=== PATIENT | female | born 1970 | race Caucasian/White ===

== ENCOUNTER → 2016-03-26 | Outpatient (CLI) | payer MEDICAID | END | disposition home or self-care (01) | LOC: LABMAIN 08:33 | PROVIDERS: ATTEND Obstetrics & Gynecology | DX: N91.2 Amenorrhea, unspecified (principal); E03.9 Hypothyroidism, unspecified | CPT/HCPCS: 36415; 82670; 83001; 84439; 84443 ==

== ENCOUNTER → 2016-04-26 | Outpatient (CLI) | payer MEDICAID ==
--- NOTE | 2016-04-27 10:47 | MM ---
Reason for exam: screening (asymptomatic). Last mammogram was performed 4 years and 8 months ago. History: Saline implants in both breasts, 2005. Took hormonal contraceptives for 5 years beginning at age 20. Physical Findings: A clinical breast exam by your physician is recommended on an annual basis and results should be correlated with mammographic findings. MG 3D Screen Mammo Imp/Cad Bilateral CC, MLO, and ID view(s) were taken. Prior study comparison: August 24, 2011, CAD bilateral diagnostic mammogram. There are scattered fibroglandular densities. Finding: There are typically benign calcifications in the 9 o'clock lower quadrant of the left breast, 3cm from the nipple. New finding since August 24, 2011. ASSESSMENT: Incomplete: need additional imaging evaluation, BI-RAD 0 RECOMMENDATION: Special view mammogram of the left breast. [facility] will attempt to contact patient to return for supplemental views.
== END | disposition home or self-care (01) ==
LOC: RADMAMWWP 07:07
PROVIDERS: ATTEND Obstetrics & Gynecology
DX: Z12.31 Encounter for screening mammogram for malignant neoplasm of breast (principal); R92.8 Other abnormal and inconclusive findings on diagnostic imaging of breast; R92.1 Mammographic calcification found on diagnostic imaging of breast
CPT/HCPCS: 77063; G0202; 76856

== ENCOUNTER → 2016-04-26 | Outpatient (CLI) | payer MEDICAID ==
--- NOTE | 2016-04-26 10:55 | US ---
EXAMINATION TYPE: US transvaginal DATE OF EXAM: 04/26/2016 10:42 AM COMPARISON: Pelvic ultrasound August 24, 2011 CLINICAL HISTORY: D25.9 KNOWN UTERINE LEIOMYOMA. pelvic tenderness and enlarged uterus on dr's exam TECHNIQUE: Transabdominal (TA) per pt preference Date of LMP: had ablation, no cycles EXAM MEASUREMENTS: Uterus: 8.6 x 5.2 x 7.4 cm Endometrial Stripe: unable to visualize, post ablation Right Ovary: 2.4 x 1.5 x 1.4 cm Left Ovary: 2.4 x 2.6 x 1.3 cm TECHNOLOGIST IMPRESSION: 1. Uterus: anterverted, seen with 3 fibroids, largest at posterior uterine fundus measuring 6.1 x 5. 4 x 4.3cm 2. Endometrium: poorly delineated due to prior ablation 3. Right Ovary: wnl 4. Left Ovary: wnl 5. Bilateral Adnexa: wnl 6. Posterior cul-de-sac: no free fluid seen There are well-circumscribed heterogeneous hypoechoic lesions throughout the uterus consistent with k nown fibroids. Largest measures 6.1 cm on long axis. At least 3 well-defined fibroids are identified during real-time scanning per technologist including low-lying anterior subserosal 2.7 cm lesion note d on image 24. No free fluid is seen in pelvis. Both ovaries are identified. No suspicious adnexal masses are identified. IMPRESSION: Uterine fibroids redemonstrated, increased in size and number from 2012 ultrasound. Pelvi c MRI can be performed to better evaluate and characterize if desired.
== END ==
LOC: RADUSWWP 10:17
PROVIDERS: ATTEND Obstetrics & Gynecology
DX: D25.9 Leiomyoma of uterus, unspecified (principal)
CPT/HCPCS: 76856

== ENCOUNTER → 2016-04-29 | Outpatient (CLI) | payer MEDICAID ==
--- NOTE | 2016-04-29 10:24 | MM ---
Reason for exam: additional evaluation requested from abnormal screening. Last mammogram was performed less than 1 month ago. History: Saline implants in both breasts, 2005. Took hormonal contraceptives for 7 years beginning at age 20. Physical Findings: Nurse did not find any significant physical abnormalities on exam. MG Work Up Joyce W/Imp W/CAD L ML, ML with magnification, and CC with magnification view(s) were taken of the left breast. Prior study comparison: April 26, 2016, bilateral MG 3d screen mammo imp/cad. August 24, 2011, CAD bilateral diagnostic mammogram. The breast tissue is heterogeneously dense. This may lower the sensitivity of mammography. Clusters of fine microcalcifications medially and just above the retroareolar plane at 10 o'clock. There may be underlying nodularity for which ultrasound is recommended. These results were verbally communicated with the patient and result sheet given to the patient on 04/29/16. ASSESSMENT: Incomplete: need additional imaging evaluation, BI-RAD 0 RECOMMENDATION: Ultrasound of the left breast. (6-12:00)
--- NOTE | 2016-04-29 10:29 | USB ---
Reason for exam: additional evaluation requested from abnormal screening. History: Saline implants in both breasts, 2004. Took hormonal contraceptives for 7 years beginning at age 20. US Breast Workup Limited LT Left breast ultrasound demonstrates a 8 x 7 x 6mm oval, cystic lesion at 12 o'clock, a 26 x 6 x 14mm cystic cluster at 10-11 o'clock and multiple small cluster at upper/just medial to implant. These results were verbally communicated with the patient and result sheet given to the patient on 04/29/16. ASSESSMENT: Probably benign, BI-RAD 3 RECOMMENDATION: Ultrasound of the left breast in 6 months.
== END | disposition home or self-care (01) ==
LOC: RADMAMWWP 08:15
PROVIDERS: ATTEND Obstetrics & Gynecology
DX: R92.8 Other abnormal and inconclusive findings on diagnostic imaging of breast (principal)
CPT/HCPCS: 76642; G0204

== ENCOUNTER → 2016-11-11 | Outpatient (CLI) | payer MEDICAID ==
--- NOTE | 2016-11-11 10:36 | USB ---
Reason for exam: follow-up at short interval from prior study. History: Saline implants in both breasts, 2005. Took hormonal contraceptives for 7 years beginning at age 20. Physical Findings: Nurse Summary: BB's on palpable (nurse kp). US Breast LT Left breast ultrasound includes all four quadrants, the retroareolar region and axilla. Finding demonstrates a 26 x 4 x 12mm cystic cluster at 10 o'clock versus 2.7 x 0.6 x 1.4cm previously. Findings likely relate to fibrocystic change. No solid or cystic lesion seen at the other palpable sites. These results were verbally communicated with the patient and result sheet given to the patient on 11/11/16. ASSESSMENT: Benign, BI-RAD 2 RECOMMENDATION: Return to routine screening mammogram schedule for both breasts. Back on schedule for April 2017.
== END | disposition home or self-care (01) ==
LOC: RADUSWWP 08:52
PROVIDERS: ATTEND Obstetrics & Gynecology
DX: R92.8 Other abnormal and inconclusive findings on diagnostic imaging of breast (principal)

== ENCOUNTER → 2017-02-11 | Outpatient (CLI) | payer MEDICAID ==
[2017-02-11 07:44] LABS: Appearance,Urine Clear (Clear); Bilirubin,Urine Negative (Negative); Blood,Urine Trace (Negative); Color,Urine Yellow; Glucose,Urine (UA) Negative (Negative); Hyaline Casts,Urine 1 /lpf (0-2); Ketones,Urine Negative (Negative); Leukocyte Esterase,Urine Negative (Negative); Mucus,Urine Moderate /hpf; Nitrite,Urine Negative (Negative); PH, Urine 5.5 (5.0-8.0); Protein,Urine Trace (Negative); RBC,Urine <1 /hpf (0-5); Squamous Epithelial Cell,Urine 3 /hpf (0-4); Urobilinogen,Urine <2.0 mg/dL (<2.0); WBC,Urine 2 /hpf (0-5)
[2017-02-11 07:54] LABS: Basophils % (A) 0 %; Eosinophils # (A) 0.2 k/uL (0-0.7); Eosinophils % (A) 3 %; HCT 44.9 % (34.0-46.0); HGB 15.2 gm/dL (11.4-16.0); Lymphocytes # (A) 1.4 k/uL (1.0-4.8); Lymphocytes % (A) 23 %; MCHC 33.8 g/dL (31.0-37.0); MCV 85.9 fL (80.0-100.0); Mean Platelet Volume 6.8; Monocytes # (A) 0.3 k/uL (0-1.0); Monocytes % (A) 5 %; Neutrophils # (A) 3.9 k/uL (1.3-7.7); Neutrophils % (A) 67 %; Platelet Count 260 k/uL (150-450); RBC 5.23 m/uL (3.80-5.40); RDW 11.7 % (11.5-15.5); WBC 5.8 k/uL (3.8-10.6)
[2017-02-11 07:57] LABS: ALT 28 U/L (9-52); AST 22 U/L (14-36); Albumin 4.3 g/dL (3.5-5.0); Alkaline Phosphatase 87 U/L (38-126); Anion Gap 8 mmol/L; Blood Urea Nitrogen 15 mg/dL (7-17); Calcium 9.7 mg/dL (8.4-10.2); Carbon Dioxide 25 mmol/L (22-30); Chloride 108 mmol/L (98-107); Cholesterol 168 mg/dL (<200); Glucose 96 mg/dL (74-99); HDL Cholesterol 74 mg/dL (40-60); LDL Cholesterol,Calculated 84 mg/dL (0-99); Potassium 4.3 mmol/L (3.5-5.1); Sodium 141 mmol/L (137-145); Total Bilirubin 0.5 mg/dL (0.2-1.3); Total Protein 7.2 g/dL (6.3-8.2); Triglycerides 50 mg/dL (<150)
== END | disposition home or self-care (01) ==
LOC: LABMAIN 07:07
PROVIDERS: ATTEND Family Medicine
DX: Z00.00 Encounter for general adult medical examination without abnormal findings (principal)
CPT/HCPCS: 36415; 80053; 80061; 81001; 82306; 85025; 87086

== ENCOUNTER → 2018-03-20 | Outpatient (CLI) | payer MEDICAID ==
[2018-03-20 10:06] LABS: Appearance,Urine Cloudy (Clear); Bacteria,Urine Many /hpf; Bilirubin,Urine Negative (Negative); Blood,Urine Trace (Negative); Color,Urine Dark Yellow; Glucose,Urine (UA) Negative (Negative); Ketones,Urine Negative (Negative); Leukocyte Esterase,Urine Large (Negative); Mucus,Urine Few /hpf; Nitrite,Urine Positive (Negative); Protein,Urine Trace (Negative); RBC,Urine 8 /hpf (0-5); Squamous Epithelial Cell,Urine 9 /hpf (0-4); WBC,Urine >182 /hpf (0-5)
== END ==
LOC: LABMAIN 09:07
PROVIDERS: ATTEND Physician Assistant Medical
DX: R31.9 Hematuria, unspecified (principal)
CPT/HCPCS: 81001; 87086

== ENCOUNTER → 2018-06-13 | Outpatient (CLI) | payer MEDICAID ==
--- NOTE | 2018-06-13 15:52 | US ---
EXAMINATION TYPE: US pelvic complete DATE OF EXAM: 06/13/2018 COMPARISON: 04/26/2016 CLINICAL HISTORY: Leiomyoma of uterus, unspe D25.9. Ablation 3-4 years ago. Known fibroids TECHNIQUE: Transabdominal (TA) - patient preference Date of LMP: unknown EXAM MEASUREMENTS: Uterus: 11.9 x 7.0 x 9.4 cm Endometrial Stripe: 0.4 cm Right Ovary: 3.8 x 2.2 x 2.2 cm Left Ovary: 2.8 x 1.2 x 1.2 cm 1. Uterus: Anteverted at least 3 fibroids noted with largest at posterior fundus = 7.4 x 7.1 x 9.0 cm 2. Endometrium: poorly visualized 3. Right Ovary: follicles noted 4. Left Ovary: follicles noted 5. Bilateral Adnexa: appears wnl 6. Posterior cul-de-sac: wnl IMPRESSION: 1. Multiple large uterine fibroids. 2. Findings appear similar to prior exam
[2018-06-13 18:33] LABS: HIV 1 AB Non-Reactive (Non-Reactive); HIV AB P24 Non-Reactive (Non-Reactive); HIV P24 AG Non-Reactive (Non-Reactive)
--- NOTE | 2018-06-14 10:50 | MM ---
Reason for exam: screening (asymptomatic). Last mammogram was performed 2 years and 1 month ago. History: Saline implants in both breasts, 2005. Took hormonal contraceptives for 7 years beginning at age 20. Physical Findings: A clinical breast exam by your physician is recommended on an annual basis and results should be correlated with mammographic findings. MG 3D Screen Mammo Imp/Cad Bilateral CC, MLO, and ID view(s) were taken. Prior study comparison: April 29, 2016, left breast MG work up belen w/imp w/CAD L. April 26, 2016, bilateral MG 3d screen mammo imp/cad. The breast tissue is heterogeneously dense. This may lower the sensitivity of mammography. Stable bilateral implants. No significant changes when compared with prior studies. ASSESSMENT: Benign, BI-RAD 2 RECOMMENDATION: Routine screening mammogram of both breasts in 1 year.
== END ==
LOC: RADUSWWP 07:45
PROVIDERS: ATTEND Obstetrics & Gynecology
DX: D25.9 Leiomyoma of uterus, unspecified (principal); Z12.31 Encounter for screening mammogram for malignant neoplasm of breast; Z98.82 Breast implant status; R10.2 Pelvic and perineal pain
CPT/HCPCS: 76856; 77063; 77067; 86780; 87390

== ENCOUNTER → 2018-08-15 | Outpatient (CLI) | payer MEDICAID ==
[2018-08-15 11:29] LABS: Basophils % (A) 1 %; Eosinophils # (A) 0.2 k/uL (0-0.7); Eosinophils % (A) 3 %; HCT 43.6 % (34.0-46.0); HGB 14.8 gm/dL (11.4-16.0); Lymphocytes # (A) 1.3 k/uL (1.0-4.8); Lymphocytes % (A) 22 %; MCH 29.3 pg (25.0-35.0); MCHC 34.1 g/dL (31.0-37.0); MCV 86.1 fL (80.0-100.0); Mean Platelet Volume 7.1; Monocytes # (A) 0.2 k/uL (0-1.0); Monocytes % (A) 4 %; Neutrophils # (A) 3.8 k/uL (1.3-7.7); Neutrophils % (A) 68 %; Platelet Count 253 k/uL (150-450); RBC 5.06 m/uL (3.80-5.40); RDW 13.3 % (11.5-15.5); WBC 5.6 k/uL (3.8-10.6)
[2018-08-15 11:34] LABS: African American GFR (CKD) >90 (>60 ml/min/1.73 sqM); Anion Gap 9 mmol/L; Blood Urea Nitrogen 15 mg/dL (7-17); Calcium 9.6 mg/dL (8.4-10.2); Carbon Dioxide 26 mmol/L (22-30); Chloride 106 mmol/L (98-107); Glucose 70 mg/dL (74-99); Potassium 4.1 mmol/L (3.5-5.1); Sodium 141 mmol/L (137-145)
== END | disposition home or self-care (01) ==
LOC: LABPAT 10:27
PROVIDERS: ATTEND Obstetrics & Gynecology
DX: Z01.812 Encounter for preprocedural laboratory examination (principal)
CPT/HCPCS: 36415; 80048; 85025

== ENCOUNTER 2018-08-24 07:51 | Day surgery (SDC) | payer MEDICAID ==
--- NOTE | 2018-08-23 16:45 | P.HPOB ---
History of Present Illness H&P Date: 08/23/18 Chief Complaint: Fibroid uterus IV is a 47-year-old female with grossly enlarged 12 cm fibroid uterus. On exam it is larger in the posterior area but does have good mobility we'll try a laparoscopic robotic assisted hysterectomy with removal of bilateral fallopian tubes and possible RADHA possible BSO. Risks/benefits/alternatives to this procedure were discussed with the patient in detail prior to proceeding to the operating room and did include but were not limited to bleeding and infection damage to bladder or bowel past surgeries nerve injuries ureteral damage vascular injuries nerve injuries. On physical exam vital signs are stable and afebrile. Heart regular, lungs clear, extremities without pain. Pelvic exam reveals as above. She does have significant amount of pressure and the symptoms have become troublesome and are making difficult for her to function well and that is what we're moving forward with definitive therapy. Past Medical History Past Medical History: GERD/Reflux Additional Past Medical History / Comment(s): CURRENT: FIBROID. GALL STONES. GERED RESOLVED AFTER GB REMOVED. History of Any Multi-Drug Resistant Organisms: None Reported Past Surgical History: Cholecystectomy, Uterine Ablation Additional Past Surgical History / Comment(s): BREAST AUGMENTATION Past Anesthesia/Blood Transfusion Reactions: Postoperative Nausea & Vomiting (PONV) Past Psychological History: Anxiety Smoking Status: Never smoker Past Alcohol Use History: Rare Past Drug Use History: None Reported - Past Family History Father Family Medical History: Cancer Additional Family Medical History / Comment(s): KIDNEY AND BLADDER CANCER- POSSIBLE METS. Medications and Allergies Home Medications Medication Instructions Recorded Confirmed Type Ibuprofen [Motrin Ib] 200 - 400 mg PO Q6H PRN 08/18/18 08/18/18 History Allergies Allergy/AdvReac Type Severity Reaction Status Date / Time cefuroxime axetil Allergy Unknown Rash/Hives Verified 08/18/18 15:27 [From Ceftin] ciprofloxacin [From Cipro] Allergy Unknown Rash/Hives Verified 08/18/18 15:27 ciprofloxacin HCl Allergy Unknown Rash/Hives Verified 08/18/18 15:27 [From Cipro] Exam Osteopathic Statement: *. No significant issues noted on an osteopathic structural exam other than those noted in the History and Physical/Consult. - OBG Physical Exam Breast: both: normal (no masses) Abdomen: bowel sounds normal, no diffuse tenderness, no bruit present, no guarding noted, no hepatomegaly, no splenomegaly, no mass Vulva: both: normal Vagina: normal moisture, no discharge Cervix: no lesion, no discharge Uterus: normal size, normal contour Adnexa: both: normal Anus/Rectum: normal perianal skin, no rectal mass, no hemorrhoids, heme negative
[~2018-08-24 07:51] MED LIST: CLINDAMYCIN 900 MG in DEXTROSE 5% IN WATER 50 ML IVPB ONE; DEXAMETHASONE SOD PHOSPHATE 10 MG/ML 1 ML VIAL IV ONE; GENTAMICIN 260 MG in SODIUM CHLORIDE 0.9% 100 ML IVPB ONE; HYDROmorphone 0.5 MG/0.5 ML SYRINGE IVP PRN; LIDOCAINE 1% 20 ML VIAL (10MG/ML) FOR IV START INTRADERMA PRN; ONDANSETRON 4 MG/2 ML VIAL IVP ONE; SCOPOLAMINE 1.5MG/72HR PATCH TRANSDERM ONE
[2018-08-24] MEDS ORDERED: LACTATED RINGERS 1,000 ML IV ONE ×2 (08:21→11:38)
[2018-08-24] MEDS: LACTATED RINGERS 1,000 ML IV SCH ×2 (08:22→18:29)
[2018-08-24] MEDS ORDERED: MIDAZOLAM (PF) 2 MG/2 ML VIAL IVP ONE (08:27)
[2018-08-24] MEDS ORDERED: KETOROLAC 30 MG/ML 1 ML VIAL ONE (09:08)
[2018-08-24] MEDS ORDERED: LIDOCAINE 1% INJ 10MG/ML (20 ML MDV) ONE (09:08)
[2018-08-24] MEDS ORDERED: NEOSTIGMINE 1 MG/ML 10 ML VIAL ONE (09:08)
[2018-08-24] MEDS ORDERED: HYDROmorphone (PF) 1 MG/ML ONE (09:08)
[2018-08-24] MEDS ORDERED: GLYCOPYRROLATE 0.2 MG/ML 2 ML VIAL ONE (09:08)
[2018-08-24] MEDS ORDERED: ROCURONIUM BROMIDE 10 MG/ML 10 ML VIAL IV ONE (09:08)
[2018-08-24] MEDS ORDERED: PROPOFOL 10 MG/ML 20 ML VIAL IV ONE (09:08)
[2018-08-24] MEDS ORDERED: fentaNYL (PF) 50 MCG/ML 2 ML AMP ONE (09:08)
[2018-08-24] MEDS ORDERED: BUPIVACAINE (PF) 0.25% 30 ML VIAL SQ ONE ×2 (09:50)
[2018-08-24] MEDS ORDERED: SIMETHICONE 80 MG CHEWABLE PO PRN (11:46)
[2018-08-24] MEDS ORDERED: ONDANSETRON 4 MG/2 ML VIAL IVP PRN ×2 (11:46→14:08)
--- NOTE | 2018-08-24 12:03 | P.OP ---
Date of Procedure: 08/24/18 Preoperative Diagnosis: Fibroid uterus Postoperative Diagnosis: Same with bowel adhesions to posterior uterus Procedure(s) Performed: Robotic-assisted laparoscopic hysterectomy with bilateral salpingectomy and diagnostic cystoscopy as well as lysis of adhesions Anesthesia: ANASTACIA Surgeon: Garrison Díaz Bus Escort #1: Reva Salcedo Estimated Blood Loss (ml): 100 IV fluids (ml): 700 Urine output (ml): 150 Pathology: other (Uterus, cervix, fallopian tubes) Condition: stable Disposition: floor Operative Findings: Significant and hard adhesions of the rectum/sigmoid colon to the posterior uterus that were bluntly and sharply lysed free grossly very enlarged uterus with multiple fibroids Description of Procedure: Patient was taken to the operating suite where a general anesthetic was found be adequate. She was prepped and draped in the normal sterile fashion and placed in the dorsal lithotomy position. Initially a speculum was inserted into the vagina and the anterior lip of the cervix was identified and grasped with a single-tooth tenaculum. Cervix was then dilated and sounded to approximately 9 cm. Uterus was noted to be grossly large and that but likely secondary to fibroid. Once sounded and cut measured 3 cm a Alannah manipulator was inserted with sutures placed at 3 and 9 to help and assistance. Other incidents were then removed and were Fischer catheter was placed. Gloves were then changed and attention was turned to abdominal portion procedure where 2 mL of quarter percent Marcaine was injected about 6 cm above the umbilicus due to the enlarged uterus which was measuring on exam today approximately 14 cm. Once this was accomplished a 5 mm port and sleeve were inserted under direct visualization with an optical trocar and sleeve. Once peritoneal placement was assured gas was allowed to fully insufflate the abdomen and patient was then placed in a very steep Trendelenburg position. 2 lateral ports were then placed just above the umbilicus 10 cm laterally. To the umbilicus bilaterally and through these 8 mm skin incisions da Zahida ports and sleeves were inserted. Once this was completed a 1 cm incision was made between the left lateral and the medial port and a 10 mm trocar and sleeve were placed. Camera port was then exchanged for a robotic port and the robot was brought in and docked. Once fully docked a scissor placed in the one arm and a [place] grasper in the 2 arm. At this point I did break scrub and go to the console. Uterus was elevated and anteverted observations the pelvis were noted. Thick scarring of the rectum/s igmoid were noted on the posterior side of the uterus and were bluntly and sharply lysed free. Every effort was made to stay well above the scarring, however the scarring was firmly attached to the uterus likely secondary to endometriosis as I have no other explanation for why the scar tissue would been there. During the process of blunt dissection a small window was created that there was concern over there being a bowel injury, we did call a general surgeon who came and evaluated the area, no bowel or fluid or leaking was noted from the area at all and the decision to continue the case was made as it appeared to be more peritoneal hole than a injury to the bowel. Therefore uterus was elevated and tipped left-hand side the mesosalpinx tissue were then grasped cauterized and cut all the way to the edge of the uterus and the fallopian tube was excised and removed to get it out of the operative field. Once this was completed utero-ovarian tissues were identified cauterized and cut and tissue was cauterized and cut from the mesosalpinx tissues all the way to the round ligament round ligament was then cauterized and cut and then the 2 windows or edges of the broad ligament were skeletonized for better visualization. Uterine vasculature was then cauterized. Next the 0 scope was exchanged for a 30 down scope and the vesicouterine peritoneum was identified and undermined with [place] and this opening was extended across the face the uterus incising the tissues and bluntly dissecting the bladder out of the operative field. Once this was completed the right side of the uterus was developed in a similar fashion. This was a relatively slow and delivery process as her uterus was very large and what we had excellent visibility there was still somewhat limited room to work with as large fibroid uterus that she had. Once this process was completed the bladder was completely dissected out of the operative field the balloon and the Alannah manipulator was expanded and an anterior colpotomy was made. Continue to use a 30 down scope the cup was followed counterclockwise initially to proxy 9:00 and at this point a 0 scope was then brought back in. Due to some restraints on manipulation because the size and weight of the uterus after approximately getting to 8:00 I stopped and reversed to a clockwise motion moving from approximately 2:00 around the cervix there is better mobility doing this and we were able to follow the cervical cup all the way around to 3 and 60. Once this was completed Alannah manipulator was removed and a uterine extraction bag was placed uterus was placed in the uterus uterine extraction bag brought to the vagina and with some manipulation we were able to remove the uterus in total. No bleeding is noted on the pedicles at this juncture. The general surgeon again came into the room and we again identified the area there was no significant concern for bowel injury from his standpoint and using to OB lock suture we simply reapproximated the peritoneal tear. Once this was accomplished using a make suture cut and a cardia grasper the vaginal cuff was closed essentially in 2 layers with old V lock suture due to how thin the anterior layer was with pelvic needed some additional re-imbrication or support to keep from having any potential perforations following the healing process. Once this was completed pelvis was thoroughly irrigated and no bleeding is noted. At this point robot was undocked and removed from the field and ports were removed. 5 deep breaths were provided during this process. Once completed Dr. Salcedo close the incision subcuticularly with 4-0 Vicryl suture. At the same time I did do a cystoscopy and good flow was noted from both ureteral jets. All instruments were then removed. Sponge, lap, needle counts were all correct 2. Patient was then taken to the recovery room in stable and satisfactory condition.
[2018-08-24] MEDS: HEPARIN SODIUM,PORCINE 5,000 UNIT/ML 1 ML VIAL SQ SCH ×2 (14:25→22:48)
[2018-08-24 15:17] VITALS: BMI 3360.1
[2018-08-24] MEDS ORDERED: SODIUM CHLORIDE 0.9% 500 ML 500 ML IV ONE (17:25)
[2018-08-24] MEDS: KETOROLAC 30 MG/ML 1 ML VIAL IVP PRN (17:30)
[2018-08-24 19:20] VITALS: RESP 16
[2018-08-24] MEDS: SENNOSIDES-DOCUSATE SODIUM 1 EACH TAB PO SCH (22:42)
[2018-08-25] MEDS: KETOROLAC 30 MG/ML 1 ML VIAL IVP PRN (03:44)
[2018-08-25] MEDS: HEPARIN SODIUM,PORCINE 5,000 UNIT/ML 1 ML VIAL SQ SCH (06:33)
--- NOTE | 2018-08-25 08:18 | P.DS ---
Providers Expected date of discharge: 08/25/18 Attending physician: Garrison Díaz Primary care physician: [facility] Course: IV is doing very well postop day 1. She is involuting, voiding and she is tolerating her diet. She is also passing flatus and voices no complaints. She is tolerating a regular diet this morning. I'll signs are stable and afebrile. Heart regular, lungs clear, extremities without pain. Abdomen soft incisions are intact and she does have bowel sounds. Assessment postop day 1. Plan discharged home follow up with me in 2 weeks. Prescriptions for [place] and Motrin are provided discharge instructions are thoroughly reviewed. If she has any issues at all she is to notify our office or [facility] emergency room all questions are answered for her at this time as well as for her . She is stable for discharge this time. Patient Condition at Discharge: Good Plan - Discharge Summary Discharge Rx Participant: No New Discharge Prescriptions: New Ibuprofen [Motrin] 600 mg PO Q6HR PRN #30 tab PRN Reason: Pain HYDROcodone/APAP 5-325MG [[place] 5-325] 1 tab PO Q4HR PRN #30 tab PRN Reason: Pain No Action Ibuprofen [Motrin Ib] 200 - 400 mg PO Q6H PRN PRN Reason: Pain Discharge Medication List Ibuprofen [Motrin Ib] 200 - 400 mg PO Q6H PRN 08/18/18 [History] HYDROcodone/APAP 5-325MG [[place] 5-325] 1 tab PO Q4HR PRN #30 tab 08/25/18 [Rx] Ibuprofen [Motrin] 600 mg PO Q6HR PRN #30 tab 08/25/18 [Rx] Follow up Appointment(s)/Referral(s): Garrison Díaz DO [Doctor of Osteopathic Medicine] - 2 Weeks Activity/Diet/Wound Care/Special Instructions: No heavy lifting, stairs and driving, and pelvic rest. If any high temperatures, heavy bleeding, or severe pain call my office
[2018-08-25 09:06] VITALS: BP 117/72; PULSE 71; TEMP 98.9
[2018-08-25] MEDS: SENNOSIDES-DOCUSATE SODIUM 1 EACH TAB PO SCH (09:38)
[2018-08-25 10:34] LABS: Basophils % (A) 0 %; Eosinophils # (A) 0.3 k/uL (0-0.7); Eosinophils % (A) 3 %; HCT 34.4 % (34.0-46.0); Lymphocytes # (A) 0.9 k/uL (1.0-4.8); Lymphocytes % (A) 11 %; MCH 29.4 pg (25.0-35.0); MCHC 34.3 g/dL (31.0-37.0); MCV 85.6 fL (80.0-100.0); Mean Platelet Volume 7.4; Monocytes # (A) 0.4 k/uL (0-1.0); Monocytes % (A) 4 %; Neutrophils # (A) 6.7 k/uL (1.3-7.7); Neutrophils % (A) 81 %; Platelet Count 199 k/uL (150-450); RBC 4.01 m/uL (3.80-5.40); RDW 13.8 % (11.5-15.5); WBC 8.3 k/uL (3.8-10.6)
[2018-08-25 10:42] LABS: HGB 11.8 gm/dL (11.4-16.0)
== END 2018-08-25 10:15 | disposition home or self-care (01) ==
LOC: OR 07:51 → 6PED 12:56 → OR 08-25 10:15
PROVIDERS: ATTEND Obstetrics & Gynecology
DX: D25.9 Leiomyoma of uterus, unspecified (principal); N80.0 Endometriosis of uterus; K66.0 Peritoneal adhesions (postprocedural) (postinfection); K21.9 Gastro-esophageal reflux disease without esophagitis; F41.9 Anxiety disorder, unspecified; Z90.49 Acquired absence of other specified parts of digestive tract; Z80.52 Family history of malignant neoplasm of bladder; Z80.51 Family history of malignant neoplasm of kidney; Z88.1 Allergy status to other antibiotic agents
CPT/HCPCS: 58573; S2900; 81025; 85025; 86850; 86900; 86901; 88307

== ENCOUNTER → 2020-02-18 | Outpatient (CLI) | payer MEDICAID | END | disposition home or self-care (01) | LOC: LABMAIN 12:42 | PROVIDERS: ATTEND Emergency Medicine | DX: Z20.828 Contact with and (suspected) exposure to other viral communicable diseases (principal) | CPT/HCPCS: 36415; 86769 ==

== ENCOUNTER → 2020-08-12 | Outpatient (CLI) | payer MEDICAID ==
--- NOTE | 2020-08-14 11:49 | MM ---
Reason for exam: screening (asymptomatic). Last mammogram was performed 2 years and 2 months ago. History: Saline implants in both breasts, 2005. Took hormonal contraceptives for 7 years beginning at age 20. Physical Findings: A clinical breast exam by your physician is recommended on an annual basis and results should be correlated with mammographic findings. MG 3D Screen Mammo Imp/Cad Bilateral CC, MLO, and ID view(s) were taken. Prior study comparison: June 13, 2018, bilateral MG 3d screen mammo imp/cad. April 29, 2016, left breast MG work up belen w/imp w/CAD L. The breast tissue is heterogeneously dense. This may lower the sensitivity of mammography. Bilateral implants are intact. ASSESSMENT: Benign, BI-RAD 2 RECOMMENDATION: Routine screening mammogram of both breasts in 1 year.
== END | disposition home or self-care (01) ==
LOC: RADMAMWWP 07:40
PROVIDERS: ATTEND Obstetrics & Gynecology
DX: Z12.31 Encounter for screening mammogram for malignant neoplasm of breast (principal)
CPT/HCPCS: 77063; 77067

== ENCOUNTER → 2020-08-12 | Outpatient (CLI) | payer MEDICAID ==
[2020-08-12 12:27] LABS: HGB 14.6 g/dL (12.0-15.0); MCH 29.7 pg (27.0-32.0); MCV 87.4 fL (80.0-97.0); Mean Platelet Volume 9.5 fL (9.5-12.2); Platelet Count 328 X 10*3/uL (140-440); RBC 4.92 X 10*6/uL (4.10-5.20); RDW 11.7 % (11.5-14.5); WBC 5.58 X 10*3/uL (4.50-10.00)
[2020-08-12 13:38] LABS: Chol/HDL Ratio 2.5; LDL Cholesterol,Calculated 94.6 mg/dL (0.0-131.0); VLDL Calculation 10.4 mg/dL (5.00-40.00)
[2020-08-12 13:46] LABS: T4, Free (Free Thyroxine) 1.1 ng/dL (0.80-1.80)
== END | disposition home or self-care (01) ==
LOC: LABWHC1 08:03
PROVIDERS: ATTEND Obstetrics & Gynecology
DX: Z13.220 Encounter for screening for lipoid disorders (principal); Z13.29 Encounter for screening for other suspected endocrine disorder
CPT/HCPCS: 36415; 80061; 84439; 84443; 84479; 85027

== ENCOUNTER → 2020-09-25 | Outpatient (CLI) | payer MEDICAID | END | disposition home or self-care (01) | LOC: LABMAIN 10:28 | PROVIDERS: ATTEND Specialist/Technologist Athletic Trainer | DX: Z20.822 Contact with and (suspected) exposure to COVID-19 (principal) | CPT/HCPCS: 87635 ==

== ENCOUNTER → 2020-12-25 | Outpatient (CLI) | payer MEDICAID | END | disposition home or self-care (01) | LOC: LABMAIN 07:43 | PROVIDERS: ATTEND Family Medicine | DX: Z20.822 Contact with and (suspected) exposure to COVID-19 (principal) | CPT/HCPCS: 87635 ==

== ENCOUNTER 2021-01-19 12:45 | Emergency (ER) | payer MEDICAID, OTHER ==
[2021-01-19 12:53] VITALS: TEMP 97.9
--- NOTE | 2021-01-19 13:13 | ED ---
General Adult HPI - General Chief complaint: Upper Respiratory Infection Stated complaint: covid+, infusion Time Seen by Provider: 01/19/21 12:50 Source: patient, RN notes reviewed, old records reviewed Mode of arrival: ambulatory Limitations: no limitations - History of Present Illness Initial comments: This is a 50-year-old female presents emergency Department complaining of cough congestion and a little sore throat. Patient states started on Tuesday. Patient states she did have exposure to someone with cold recently. Patient denies any difficulty breathing or shortness of breath. Patient denies any chest pain. Patient denies abdominal pain. Patient states she has lost a little bit of her sense of taste. Patient is vaccinated. - Related Data Home Medications Medication Instructions Recorded Confirmed Ibuprofen [Motrin Ib] 200 - 400 mg PO Q6H PRN 08/18/18 08/24/18 Previous Rx's Medication Instructions Recorded HYDROcodone/APAP 5-325MG [[place] 1 tab PO Q4HR PRN #30 tab 08/25/18 5-325] Ibuprofen [Motrin] 600 mg PO Q6HR PRN #30 tab 08/25/18 Allergies Allergy/AdvReac Type Severity Reaction Status Date / Time cefuroxime axetil Allergy Unknown Rash/Hives Verified 01/19/21 12:53 [From Ceftin] ciprofloxacin [From Cipro] Allergy Unknown Rash/Hives Verified 01/19/21 12:53 ciprofloxacin HCl Allergy Unknown Rash/Hives Verified 01/19/21 12:53 [From Cipro] Review of Systems ROS Statement: Those systems with pertinent positive or pertinent negative responses have been documented in the HPI. ROS Other: All systems not noted in ROS Statement are negative. Past Medical History Past Medical History: GERD/Reflux Additional Past Medical History / Comment(s): GALL STONES History of Any Multi-Drug Resistant Organisms: None Reported Past Surgical History: Cholecystectomy, Hysterectomy, Uterine Ablation Additional Past Surgical History / Comment(s): BREAST AUGMENTATION Past Anesthesia/Blood Transfusion Reactions: No Reported Reaction Past Psychological History: Anxiety Smoking Status: Never smoker Past Alcohol Use History: Rare Past Drug Use History: None Reported - Past Family History Father Family Medical History: Cancer Additional Family Medical History / Comment(s): KIDNEY AND BLADDER CANCER- POSSIBLE METS. General Exam - General Exam Comments Initial Comments: GENERAL: Patient is well-developed and well-nourished. Patient is nontoxic and well- hydrated and is in mild distress. ENT: Neck is soft and supple. No significant lymphadenopathy is noted. Oropharynx is clear. Moist mucous membranes. Neck has full range of motion without eliciting any pain. EYES: The sclera were anicteric and conjunctiva were pink and moist. Extraocular movements were intact and pupils were equal round and reactive to light. E yelids were unremarkable. PULMONARY: Unlabored respirations. Good breath sounds bilaterally. No audible rales rhonchi or wheezing was noted. CARDIOVASCULAR: There is a regular rate and rhythm without any murmurs gallops or rubs. ABDOMEN: Soft and nontender with normal bowel sounds. SKIN: Skin is clear with no lesions or rashes and otherwise unremarkable. NEUROLOGIC: Patient is alert and oriented x3. Cranial nerves II through XII are grossly intact. Motor and sensory are also intact. Normal speech, volume and content. Symmetrical smile. MUSCULOSKELETAL: Normal extremities with adequate strength and full range of motion. LYMPHATICS: No significant lymphadenopathy is noted PSYCHIATRIC: Normal psychiatric evaluation. Limitations: no limitations Course Vital Signs 01/19/21 12:50 Temperature 97.9 F Pulse Rate 109 H Respiratory 16 Rate Blood Pressure 137/94 O2 Sat by Pulse 100 Oximetry Medical Decision Making - Medical Decision Making Patient is positive for COVID and she received monoclonal antibodies. Patient had reactions to monoclonal antibodies so they were stopped after 12 mL. Patient received Benadryl and steroids and Pepcid. Patient had an EKG done with the center she had a little bit of chest heaviness when this occurred. Patient's EKG showed a normal sinus rhythm at 92 bpm ID interval 254 QRS is 72 QT interval 360 QTC is 445. Patient's EKG shows no ST segment elevation or depression. Disposition Clinical Impression: COVID-19 Disposition: HOME SELF-CARE Condition: Good Instructions (If sedation given, give patient instructions): Coronavirus Disease 2019 (COVID-19) Is patient prescribed a controlled substance at d/c from ED?: No Referrals: Luis A Jordan DO [Primary Care Provider] - 1-2 days Time of Disposition: 13:13
[2021-01-19] MEDS ORDERED: BAMLANIVIMAB (EUA) 700 MG, ETESEVIMAB (EUA) 1,400 MG in SODIUM CHLORIDE 0.9% 50 ML IVPB ONE (13:15)
[2021-01-19] MEDS ORDERED: SODIUM CHLORIDE 0.9% 50 ML IVPB ONE (13:15)
[2021-01-19] MEDS ORDERED: methylPREDNISolone SOD SUCCI 125 MG/2 ML VIAL IV STA (14:00)
[2021-01-19] MEDS ORDERED: diphenhydrAMINE 50 MG/ML 1 ML VIAL IVP STA (14:01)
[2021-01-19] MEDS ORDERED: FAMOTIDINE 20 MG/2 ML VIAL IV STA (14:01)
[2021-01-19 14:27] VITALS: RESP 18
[2021-01-19 15:25] VITALS: BP 132/77; PULSE 80
== END 2021-01-19 15:20 | disposition home or self-care (01) ==
LOC: EC 12:45
DX: U07.1 COVID-19 (principal); Z88.1 Allergy status to other antibiotic agents
CPT/HCPCS: 93005; 99283; 96374; 96375; J1200; J2930; J3490

== ENCOUNTER → 2021-01-19 | Outpatient (CLI) | payer MEDICAID, OTHER | END | disposition home or self-care (01) | LOC: LABWHC1 11:11 | PROVIDERS: ATTEND Emergency Medicine | DX: Z20.822 Contact with and (suspected) exposure to COVID-19 (principal) | CPT/HCPCS: 87635 ==

== ENCOUNTER → 2021-03-27 | Outpatient (CLI) | payer MEDICAID, OTHER | END | disposition home or self-care (01) | LOC: LABMAIN 05:10 | PROVIDERS: ATTEND Emergency Medicine | DX: Z20.822 Contact with and (suspected) exposure to COVID-19 (principal) | CPT/HCPCS: 87635 ==

== ENCOUNTER → 2021-10-20 | Outpatient (CLI) | payer MEDICAID ==
[2021-10-20 10:33] LABS: Basophils # (A) 0.02 X 10*3/uL (0.00-0.10); Basophils % (A) 0.3 %; Eosinophils # (A) 0.12 X 10*3/uL (0.04-0.35); Eosinophils % (A) 1.8 %; HCT 41.5 % (37.2-46.3); HGB 14.5 g/dL (12.0-15.0); Immature Grans, Automated 0.3 %; Lymphocytes # (A) 1.45 X 10*3/uL (0.90-5.00); Lymphocytes % (A) 21.4 %; MCH 29.8 pg (27.0-32.0); MCHC 34.9 g/dL (32.0-37.0); MCV 85.2 fL (80.0-97.0); Mean Platelet Volume 9.7 fL (9.5-12.2); Monocytes # (A) 0.32 X 10*3/uL (0.20-1.00); Monocytes % (A) 4.7 %; NRBC Per 100 WBC 0 /100 WBCS (0.0-0.0); Neutrophils # (A) 4.85 X 10*3/uL (1.80-7.70); Neutrophils % (A) 71.5 %; Platelet Count 291 X 10*3/uL (140-440); RBC 4.87 X 10*6/uL (4.10-5.20); RDW 11.6 % (11.5-14.5); WBC 6.78 X 10*3/uL (4.50-10.00)
[2021-10-20 11:13] LABS: ALT 18 U/L (8-44); AST 17 U/L (13-35); African American GFR (CKD) 118.7 (60.0-200.0); Albumin 4.7 g/dL (3.8-4.9); Albumin/Globulin Ratio 1.74 (1.60-3.17); Alkaline Phosphatase 77 U/L (41-126); BUN/Creat Ratio 18.29 Ratio (12.00-20.00); Blood Urea Nitrogen 12.8 mg/dL (9.0-27.0); Calcium 9.5 mg/dL (8.7-10.3); Carbon Dioxide 23.9 mmol/L (20.0-27.5); Chloride 104 mmol/L (96-109); Globulin 2.7 g/dL (1.6-3.3); Glucose 104 mg/dL (70-110); LDL Cholesterol,Calculated 82.2 mg/dL (0.0-131.0); Non-African American GFR(CKD) 102.5 (60.0-200.0); Sodium 139 mmol/L (135-145); Total Protein 7.4 g/dL (6.2-8.2)
== END | disposition home or self-care (01) ==
LOC: LABWHC1 07:20
PROVIDERS: ATTEND Internal Medicine Clinical Cardiac Electrophysiology
DX: R00.2 Palpitations (principal); E78.5 Hyperlipidemia, unspecified
CPT/HCPCS: 36415; 80053; 80061; 84439; 84443; 85025

== ENCOUNTER → 2022-07-07 | Outpatient (CLI) | payer MEDICAID ==
[2022-07-07 15:01] LABS: Estradiol 34.7 pg/mL; T4, Free (Free Thyroxine) 1.46 ng/dL (0.800-1.800)
== END | disposition home or self-care (01) ==
LOC: LABWHC1 06:55
PROVIDERS: ATTEND Obstetrics & Gynecology
DX: Z13.29 Encounter for screening for other suspected endocrine disorder (principal); N95.1 Menopausal and female climacteric states; R53.81 Other malaise; R23.2 Flushing; R61 Generalized hyperhidrosis
CPT/HCPCS: 36415; 82670; 83001; 84439; 84443

== ENCOUNTER → 2022-07-29 | Outpatient (CLI) | payer MEDICAID ==
--- NOTE | 2022-07-30 08:27 | MM ---
Reason for Exam: Screening (asymptomatic). Last mammogram was performed 1 year(s) and 11 month(s) ago. Patient History: Menarche at age 17. First Full-Term at age 28. Hysterectomy at age 46. Hormonal Contraceptives for 7 years from age 20 until age 27. 2005, Bilateral Implants. Risk Values: Grace 5 year model risk: 0.9%. NCI Lifetime model risk: 9.2%. Prior Study Comparison: 04/29/2016 Left Diagnostic Mammogram, [facility]. 06/13/2018 Bilateral Screening Mammogram, [facility]. 08/12/2020 Bilateral Screening Mammogram, [facility]. Tissue Density: The breast tissue is heterogeneously dense. This may lower the sensitivity of mammography. Findings: Analyzed By CAD. There is no suspicious group of microcalcifications or new suspicious mass in either breast. Bilateral implants are intact. Overall Assessment: Benign, BI-RAD 2 Management: Screening Mammogram of both breasts in 1 year. . Patient should continue monthly self-breast exams. A clinical breast exam by your physician is recommended on an annual basis. This exam should not preclude additional follow-up of suspicious palpable abnormalities. Note on Grace scores and lifetime risk: 1. A Grace score greater than 3% is considered moderate risk. If this is the case, consider specialist referral to assess eligibility for a risk reducing agent. 2. If overall lifetime risk for the development of breast cancer is 20% or higher, the patient may qualify for future screening with alternating mammogram and breast MRI. Electronically signed and approved by: Lupillo Whaley M.D. Radiologis
== END | disposition home or self-care (01) ==
LOC: RADMAMWWP 08:20
PROVIDERS: ATTEND Obstetrics & Gynecology
DX: Z12.31 Encounter for screening mammogram for malignant neoplasm of breast (principal); Z98.82 Breast implant status
CPT/HCPCS: 77063; 77067

== ENCOUNTER → 2022-12-08 | Outpatient (CLI) | payer BC, MEDICAID | END | disposition home or self-care (01) | LOC: LABMAIN 03:16 | PROVIDERS: ATTEND Emergency Medicine | DX: Z53.9 Procedure and treatment not carried out, unspecified reason (principal) ==

== ENCOUNTER 2023-03-04 05:59 | Day surgery (SDC) | payer BC ==
[2023-03-01 15:55] VITALS: BMI 23.0
[2023-03-04] MEDS ORDERED: LIDOCAINE 1% (10MG/ML) FOR IV START INTRADERMA PRN (06:13)
[2023-03-04] MEDS: LACTATED RINGERS 1,000 ML IV SCH ×2 (06:30→06:59)
[2023-03-04 06:56] VITALS: RESP 16; TEMP 98.3
[2023-03-04] MEDS ORDERED: PROPOFOL 10 MG/ML 20 ML VIAL IV ONE (07:07)
--- NOTE | 2023-03-04 07:20 | P.PCN ---
Date of Procedure: 03/04/23 Procedure(s) Performed: BRIEF HISTORY: Patient is a 52-year-old pleasant white female scheduled for an elective colonoscopy as a part of screening for colon cancer. PROCEDURE PERFORMED: Colonoscopy. PREOPERATIVE DIAGNOSIS: Screening for colon cancer. IV sedation per Anesthesia. PROCEDURE: After informed consent was obtained, the patient, was brought into the endoscopy unit. IV sedation was administered by Anesthesia under continuous monitoring. Digital rectal examination was normal. Initially the Olympus CF-160 flexible video colonoscope was then inserted in the rectum, gradually advanced into the cecum without any difficulty. Careful examination was performed as the scope was gradually being withdrawn. Ileocecal valve and the appendiceal orifice were visualized and appeared normal. Prep was excellent. Mucosa of the cecum, ascending colon, transverse colon, descending colon, sigmoid colon, and rectum appeared normal. Retroflexion was performed in the rectum and no lesions were seen. The patient tolerated the procedure well. IMPRESSION: Normal-appearing colon from rectum to cecum with no evidence of colorectal neoplasia. RECOMMENDATIONS: Findings of this examination were discussed with the patient as well as a family. She was advised to have a repeat screening colonoscopy in 10 years..
[2023-03-04 07:46] VITALS: BP 141/83; PULSE 74
== END 2023-03-04 08:11 | disposition home or self-care (01) ==
LOC: ORWHC2ENDO 05:59
PROVIDERS: ATTEND Internal Medicine Gastroenterology
DX: Z12.11 Encounter for screening for malignant neoplasm of colon (principal); F41.9 Anxiety disorder, unspecified; K21.9 Gastro-esophageal reflux disease without esophagitis; Z79.899 Other long term (current) drug therapy; Z88.1 Allergy status to other antibiotic agents
CPT/HCPCS: 45378; J2704

== ENCOUNTER → 2024-01-20 | Outpatient (CLI) | payer BC ==
--- NOTE | 2024-01-22 02:09 | MM ---
Reason for Exam: Screening (asymptomatic). Last mammogram was performed 1 year(s) and 6 month(s) ago. Patient History: Menarche at age 17. First Full-Term at age 28. Hysterectomy at age 46. Hormonal Contraceptives for 7 years from age 20 until age 27. Currently using Estrogen and Progesterone, starting at age 52. 2005, Bilateral Implants. Risk Values: Grace 5 year model risk: 1.0%. NCI Lifetime model risk: 8.9%. Prior Study Comparison: 06/13/2018 Bilateral Screening Mammogram, [facility]. 08/12/2020 Bilateral Screening Mammogram, [facility]. 07/29/2022 Bilateral MG 3D screen mammo imp/cad., [facility]. Tissue Density: There are scattered areas of fibroglandular density. Findings: Analyzed By CAD. The pattern is symmetrical. Bilateral breast prostheses are present in focal asymmetry is within the medial left breast anterior to the prosthesis No suspicious groups of microcalcifications, spiculated or lobular masses, architectural distortion or other secondary signs of malignancy are mammographically apparent. Overall Assessment: Benign, BI-RAD 2 Management: Screening Mammogram of both breasts in 1 year. A negative mammogram report should not preclude additional follow up of suspicious palpable abnormalities. Patient should continue monthly self breast exam. A clinical breast exam by your physician is recommended on an annual basis and results should be correlated with mammographic findings. Note on Grace scores and lifetime risk: 1. A Grace score greater than 3% is considered moderate risk. If this is the case, consider specialist referral to assess eligibility for a risk reducing agent. 2. If overall lifetime risk for the development of breast cancer is 20% or higher, the patient may qualify for future screening with alternating mammogram and breast MRI. [facility], , 01/22/2024 2:06 AM. Electronically signed and approved by: Luis A Howard D.O. Radiologis
== END | disposition home or self-care (01) ==
LOC: RADMAMWWP 07:04
PROVIDERS: ATTEND Obstetrics & Gynecology
DX: Z12.31 Encounter for screening mammogram for malignant neoplasm of breast (principal); R92.323 Mammographic fibroglandular density, bilateral breasts
CPT/HCPCS: 77063; 77067